=== PATIENT | female | born 1950 | race Caucasian/White ===

== ENCOUNTER 2021-08-17 16:45 | Emergency (ER) | payer MEDICARE ==
[2021-08-17] MEDS ORDERED: NORCO 5-325 TA1 EACH PO (18:47)
== END 2021-08-17 19:02 | disposition home or self-care (01) ==
LOC: FER 16:45
DX: S83.92XA Sprain of unspecified site of left knee, initial encounter (principal); F17.210 Nicotine dependence, cigarettes, uncomplicated
CPT/HCPCS: 93971